=== PATIENT | female | born 1950 ===

== ENCOUNTER 2024-11-26 06:19 | Day surgery (SDC) | payer OTHER ==
[2024-11-18 10:47] LABS: URINE APPEARANCE Clear; URINE BILIRRUBIN Negative (NEGATIVE); URINE BLOOD Negative; URINE COLOR Yellow; URINE GLUCOSE Negative (NEGATIVE); URINE KETONE Negative (NEGATIVE); URINE LEUKOCYTE Small; URINE NITRATE Negative; URINE PROTEIN Negative (NEGATIVE); URINE UROBILINOGEN 0.2 E.U./dl
[2024-11-18 10:52] LABS: URINE BACTERIA 135.7 uL (0.0-1933); URINE EPITHELIAL CELLS 13.7 uL (0.0-38.8); URINE RBC 3.8 uL (0.0-20.8); URINE WBC 18.6 uL (0.0-23.2)
[2024-11-18 11:13] LABS: INR 1.02; PARTIAL THROMBOPLASTIN TIME 29.3 SECONDS (22.0-34.0); PROTHROMBIN TIME 11.1 SECONDS (9.0-11.5)
[2024-11-18 11:22] VITALS: BP 130/79
[2024-11-18 12:27] LABS: ALBUMIN 3.6 gm/dL (3.4-5.0); BILIRUBIN TOTAL 0.33 mg/dL (0.3-1.2); CALCIUM 9.2 mg/dL (8.5-10.1); CREATININE SERUM 0.6 mg/dL (0.55-1.02); GFR 97.2; GLOBULINA 3.8 G/DL (2.4-3.5); POTASSIUM 4.03 mEq/L (3.5-5.1); TOTAL PROTEIN 7.4 gm/dL (6.4-8.2)
[2024-11-18 15:24] LABS: BASO % 0.6 % (0.1-1.2); EOS # 0.09 (0.04-0.54); EOS % 1.7 % (0.7-7.0); HEMATOCRIT 36.9 % (34.1-44.9); HEMOGLOBIN 12.2 g/dL (11.2-15.7); LYMPH # 1.05 (1.18-3.74); LYMPH % 19.7 % (19.3-53.1); MONO # 0.37 (0.24-0.82); MONO % 6.9 % (4.7-12.5); NEUT # 3.78 (1.56-6.13); NEUT % 70.7 % (34.0-71.1); PLATELET COUNT 247 K/uL (163-369); RED BLOOD COUNT 3.94 M/uL (3.93-5.22); RED CELL DISTRIBUTION WIDTH 13.2 % (11.6-14.4)
[~2024-11-26] VITALS: Ht 165.1 cm; Wt 82.1 kg
[~2024-11-26 06:19] MED LIST: TREXALL15 MG
[2024-11-26] MEDS ORDERED: CEFAZOLIN SODIUM 1,000 MG VIAL ONE (08:57)
[2024-11-26] MEDS ORDERED: BUPIVACAINE HCL/MPF 0.5% 30ML VIAL ONE (10:37)
[2024-11-26] MEDS ORDERED: MORPHINE SULFATE 4 MG/ML VIAL IV ONE ×2 (13:00→13:30)
== END 2024-11-26 16:10 | disposition home or self-care (01) ==
LOC: CIR.AMB 06:19
PROVIDERS: ATTEND Orthopaedic Surgery Hand Surgery
DX: M19.041 Primary osteoarthritis, right hand (principal); M18.11 Unilateral primary osteoarthritis of first carpometacarpal joint, right hand; M05.79 Rheumatoid arthritis with rheumatoid factor of multiple sites without organ or systems involvement